=== PATIENT | female | born 1990 | race Caucasian/White ===

== ENCOUNTER 2023-09-25 11:24 | Emergency (ER) | payer OTHER, SELFPAY ==
[2023-09-25 11:28] VITALS: BP 118/86
[2023-09-25 12:04] VITALS: BMI 19.1
[2023-09-25 12:12] VITALS: BP 101/77
[2023-09-25 12:20] LABS: % Basophils 0.4 % (0-2); % Immature Granulocytes 0.3 % (0-0.5); % Lymphocytes 12.3 % (20.5-51.1); % Monocytes 4.5 % (1.7-9.3); % Neutrophils 82.5 % (42.2-75.2); Absolute Lymphocytes 0.8 10^3/uL (1.2-3.4); Absolute Monocytes 0.3 10^3/uL (0.1-0.6); Absolute Neutrophils 5.6 10^3/uL (1.4-6.5); Hematocrit 42.8 % (37.0-47.0); Mean Corpuscular Hgb 30.2 pg (27.0-31.0); Mean Corpuscular Volume 86.3 fL (81.0-99.0); Mean Platelet Volume 9.3 fL (7.4-10.4); Nucleated Red Blood Cells % 0 %; Platelet Count 228 10^3/uL (130-400); Red Blood Cell Count 4.96 10^6/uL (4.20-5.40); Red Cell Dist. Width 11.9 % (11.5-14.5); White Blood Cell Count 6.7 10^3/uL (4.8-10.8)
[2023-09-25 12:22] LABS: Urine Albumin Negative (Neg - Trace); Urine Bilirubin Negative (Negative); Urine Character Clear (Clear); Urine Color Yellow; Urine Glucose Negative (Negative); Urine Ketone Negative (Negative); Urine Leukocyte Negative (Negative); Urine Nitrite Negative (Negative); Urine Occult Blood Trace (Negative); Urine Urobilinogen Negative (Neg - 1+)
[2023-09-25 12:31] LABS: Urine Red Blood Cell 0-2 /HPF (0-2); Urine Squamous Cell 16-20 /LPF (Few)
[2023-09-25 12:32] LABS: Urine White Cell 0-2 /HPF (0-5)
--- NOTE | 2023-09-25 12:41 | ED.GENMED ---
History of Present Illness
General
Chief Complaint: Abdominal Symptoms
Source: patient
Exam Limitations: none
Time Seen by Provider: 09/25/23 11:46
Nursing documentation reviewed up to this point in time: agreed with
Travel History
Have you had any contact with someone who has COVID-19?: No
Do you have any symptoms of coronavirus? Fever > 100 degrees, chills, cough, shortness of breath, sore throat, loss of taste or smell, muscle aches, or headache?: No
History of Present Illness
History of Present Illness:
Patient is a 33-year-old female who presented to the ER for evaluation of abdominal pain. She reports she started with generalized abdominal discomfort last night after eating dinner but then pain persisted throughout the night and continued this
morning. She denies any nausea vomiting fever chills constipation urinary frequency urgency or dysuria. She did have some mild low back pain yesterday. She denied any injury but does exercise.
LMP one week ago
Past History
Past History
ED Past Medical History: Other (Low blood pressure)
ED Past Surgical History: Other (Eye surgery)
Review of Systems
Review of Systems
Allergies reviewed?: Yes
All Other Systems: ROS reviewed and negative except as documented in HPI and ROS
Constitutional: Reports no symptoms; Denies fever
Respiratory: Reports no symptoms
Cardiac: Reports no symptoms
ABD/GI: Reports abdominal pain; Denies nausea, vomiting or diarrhea
: Reports no symptoms
Musculoskeletal: Reports no symptoms
Skin: Reports no symptoms
Neurological: Reports no symptoms
Phy Exam
General Physical Exam
General Presentation: no apparent distress
General age: appears stated age
General Skin: warm and dry
General Habitus: normal
General Mental: alert
General Hydration: appears well hydrated
Cardiovascular Exam
Cardiovascular Exam: regular rate/rhythm, no murmur and normal peripheral pulses
Pulmonary Exam
Pulmonary Exam: lungs clear
Gastrointestinal Exam
Gastrointestinal Exam: normal bowel sounds, non tender and soft
Neurological Exam
Neurological Exam: alert and oriented x3
Musculoskeletal Exam
Musculoskeletal Exam: full ROM
Skin Exam
Skin Exam: normal color and warm/dry
Psychiatric Exam
Psychiatric Exam: normal mood/affect
Course
Orders/Labs/Results
Orders:
Orders
09/25/23 12:12
Test Result ONCE
09/25/23 12:13
Complete Blood Count/With Diff Urgent
Comprehensive Metabolic Panel Urgent
HCG, Serum Qualitative Screen Urgent
Lipase Urgent
UA Reflex to Culture [Urinalysis Reflex To Culture] Urgent
Date Specimen was Collected: 09/25/23
Time Specimen was Collected: 12:05
Urine Microscopic Reflex Cult Urgent
09/25/23 12:53
Iohexol [Omnipaque] See Protocol PO NOW STA
US Pelvis W Transvag Combined Urgent
Reason For Exam: lower abd pain
09/25/23 12:54
CT Abd/pel W Iv And Oral Contr Urgent
Comment:
Reason For Exam: abd pain
0.9% Sodium Chloride 1000 ml [Nss] 1,000 ml IV BOLUS
09/25/23 16:03
Ketorolac [Toradol] 15 mg IV NOW STA
Abnormal Lab Results
09/25/23
12:13
Absolute Lymphs (auto) 0.8 L 10^3/uL
(1.2-3.4)
Neutrophils % 82.5 H %
(42.2-75.2)
Lymphocytes % 12.3 L %
(20.5-51.1)
Sodium 134 L mmol/L
(135-145)
Ur Occult Blood Reflex Trace A
(Negative)
09/25/23 12:13
09/25/23 12:13
Vital Signs
Initial and Last Documented VS:
Initial Vital Signs
Temp Pulse Resp BP Pulse Ox
98.1 F 74 18 118/86 98
09/25/23 11:28 09/25/23 11:28 09/25/23 11:28 09/25/23 11:28 09/25/23 11:28
Last Documented Vital Signs
Temp Pulse Resp BP Pulse Ox
98.1 F 87 18 106/79 98
09/25/23 11:28 09/25/23 13:24 09/25/23 13:24 09/25/23 13:00 09/25/23 16:00
Coupon Clerk consulted with Physician
Coupon Clerk consulted with physician?: Yes
Name of Physician Consulted: natalie
MDM/Problems Addressed
Differential Diagnosis Includes:
Not limited to diverticulitis, constipation, biliary colic, ovarian torsion, ovarian cyst, UTI
MDM/Problems Addressed:
Patient is a 28yr old Female who presented with abdominal pain since last night. On exam patient is in no acute distress abdomen soft and nontender however she complains of vague pain not associated with fever or chills vomiting. No UTI symptoms.
Urinalysis negative. hCG negative. Labs unremarkable patient again has no abdominal tenderness. With vague pain ultrasound was performed as well as CAT scan. Patient with incidental ovarian cyst as well as periuterine varicosities likely
incidental findings. Patient was given IV Toradol for pain no clear cause for pain however no acute concerning findings during workup. Will DC with outpatient follow-up family doctor as well as GI/[employer]. Patient given copies of her reports.
*Radiology
Radiology exam reviewed: radiology read reviewed
*Critical Care Note
Total Time (30-74mins, 75-104mins- exclusive of procedures): Not Applicable
ED Attending Note
-
Portions of this chart may have been created with voice recognition software.� Occasional wrong word or��sound alike� substitutions may have occurred due to the inherent limitations of voice recognition software.
Discharge Plan
Departure
Patient Disposition: Home (Routine Discharge)
Date of Disposition: 09/25/23
Time of Disposition: 16:07
Patient with high blood pressure during this ER visit?: No
Condition: Fair
Covid-19: Not Applicable
Discharge Problem:
Abdominal pain
Instructions: Abdominal Pain
Prescriptions:
No Action
Tablet
1 tab PO DAILY
Referrals:
Francesca Singh CRNP [Family Provider] -
Yasmeen Orellana MD [Active] -
Activity Restrictions/Additional Instructions:
As discussed no acute findings were seen on CAT scan or ultrasound for the cause of your pain. Please follow-up however with family doctor in the next several days for further reevaluation of symptoms. Also follow-up with GI. Follow-up with your
soybean grower. There is an incidental ovarian cyst and prominent left periuterine varicosities.
Return to the ER if any worsening of symptoms. You may take Tylenol for pain.
Interventions
Interventions:
*Risk Screen - Suicide Last Done: 09/25/23 12:05
*General Assessment Last Done: 09/25/23 12:05
*Neglect/Abuse Screening Last Done: 09/25/23 12:05
ED- Fall Risk Assessment Last Done: 09/25/23 12:18
*ED COVID-19 Vaccine History Last Done: 09/25/23 12:05
UA-Apwdte-Uumdftmlnw Assessment Last Done: 09/25/23 12:18
[2023-09-25 12:43] LABS: HCG, Serum Qualitative Screen Negative
[2023-09-25 12:46] LABS: ALT (SGPT) 15 U/L (0-35); AST (SGOT) 20 U/L (14-36); Albumin 4.1 g/dl (3.5-5.0); Alkaline Phosphatase 67 U/L (38-126); Blood Urea Nitrogen 11 mg/dl (7-17); Calcium 8.6 mg/dl (8.4-10.2); Carbon Dioxide 25 mmol/L (22-30); Chloride 104 mmol/L (98-107); Estimated Creatinine Clearance 101 ml/min; Glucose 86 mg/dl (70-99); Lipase 54 U/L (23-300); Potassium 4.3 mmol/L (3.5-5.1); Sodium 134 mmol/L (135-145); Total Bilirubin 0.6 mg/dl (0.2-1.3); eGFR > 60.00
[2023-09-25 13:00] VITALS: BP 106/79
[2023-09-25] MEDS: OMNIPAQUE 50 ML PO (13:04)
[2023-09-25] MEDS: NSS 1000 IV (13:05)
[2023-09-25] MEDS: TORADOL 15 MG IV (16:06)
[2023-09-25 16:08] VITALS: BP 99/71
== END 2023-09-25 16:32 | disposition home or self-care (01) ==
LOC: EMR 11:24
PROVIDERS: Nurse Practitioner; EMERGENCY PHYSICIAN Emergency Medicine; FAMILY PHYSICIAN Nurse Practitioner
DX: R10.9 Unspecified abdominal pain (principal)
CPT/HCPCS: 99285; 96374; 96360; 74177; 76830; 76856; 80053; 81003; 81015; 83690; 84703; 85025; Q9967

== ENCOUNTER 2024-09-14 22:28 | Emergency (ER) | payer OTHER, SELFPAY ==
[2024-09-14 22:34] VITALS: BP 98/72
[2024-09-14 22:48] LABS: % Basophils 0.2 % (0-2); % Eosinophils 0.1 % (0-6); % Immature Granulocytes 0.4 % (0-0.5); % Lymphocytes 3.2 % (20.5-51.1); % Monocytes 2.5 % (1.7-9.3); % Neutrophils 93.6 % (42.2-75.2); Absolute Immature Granulocytes 0.1 10^3/uL (0-0.05); Absolute Lymphocytes 0.4 10^3/uL (1.2-3.4); Absolute Monocytes 0.3 10^3/uL (0.1-0.6); Absolute Neutrophils 12.5 10^3/uL (1.4-6.5); Hematocrit 44.5 % (37.0-47.0); Hemoglobin 16.3 g/dL (12.0-16.0); Mean Corp Hgb Conc. 36.6 g/dL (33.0-37.0); Mean Corpuscular Hgb 31.8 pg (27.0-31.0); Mean Corpuscular Volume 86.7 fL (81.0-99.0); Mean Platelet Volume 10.1 fL (7.4-10.4); Nucleated Red Blood Cells % 0 %; Platelet Count 250 10^3/uL (130-400); Red Blood Cell Count 5.13 10^6/uL (4.20-5.40); Red Cell Dist. Width 11.4 % (11.5-14.5); White Blood Cell Count 13.3 10^3/uL (4.8-10.8)
[2024-09-14 23:18] LABS: ALT (SGPT) 19 U/L (0-35); AST (SGOT) 22 U/L (14-36); Albumin 4.3 g/dl (3.5-5.0); Alkaline Phosphatase 54 U/L (38-126); Blood Urea Nitrogen 21 mg/dl (7-17); Calcium 9.4 mg/dl (8.4-10.2); Chloride 101 mmol/L (98-107); Glucose 115 mg/dl (70-99); Lipase 66 U/L (23-300); Sodium 134 mmol/L (135-145); Total Bilirubin 1.8 mg/dl (0.2-1.3); eGFR > 60.00
[2024-09-14 23:27] LABS: Carbon Dioxide 19 mmol/L (22-30); Total Protein 7.4 g/dl (6.3-8.2)
[2024-09-15 00:21] VITALS: BP 106/69
[2024-09-15] MEDS: NSS 1000 IV ×2 (00:23→01:54)
[2024-09-15 01:55] VITALS: BP 110/67
[2024-09-15 03:00] VITALS: BP 100/68
--- NOTE | 2024-09-15 03:19 | ED.GENMED ---
History of Present Illness
General
Chief Complaint: Abdominal Symptoms
Source: patient
Exam Limitations: none
Time Seen by Provider: 09/15/24 02:38
Nursing documentation reviewed up to this point in time: agreed with
History of Present Illness
History of Present Illness:
Pleasant 33-year-old female presents with nausea vomiting and diarrhea that been present since 3 PM. She states that her children have had the stomach bug and had similar symptoms at home. She states that she developed symptoms shortly after her
children's and symptoms improved. Upon arrival she got a dose of Zofran and fluids and states that she feels better. Denies chest pain or shortness of breath. Patient works as a therapist via telemedicine. Patient received 2 bags of fluids here
and states that she wishes to be discharged. She has no complaints
Past History
Past History
ED Past Medical History: Other (Low blood pressure)
ED Past Surgical History: Other (Eye surgery)
Review of Systems
Review of Systems
Allergies reviewed?: Yes
All Other Systems: ROS reviewed and negative except as documented in HPI and ROS
Constitutional: Reports no symptoms
EENT: Reports no symptoms
Respiratory: Reports no symptoms
Cardiac: Reports no symptoms
ABD/GI: Reports nausea, vomiting and diarrhea
: Reports no symptoms
Musculoskeletal: Reports no symptoms
Skin: Reports no symptoms
Neurological: Reports no symptoms
Endocrine: Reports no symptoms
Hematologic/Lymphatic: Reports no symptoms
Psychiatric: Reports no symptoms
Phy Exam
General Physical Exam
General Presentation: well appearing and no apparent distress
General Skin: warm and dry
General Habitus: normal
General Mental: alert
General Hydration: appears well hydrated
ENT Exam
ENT Exam: EOMI, pharynx normal, neck supple and normocephalic
Eye Exam
Eye Exam: PERRL, cornea clear and conjunctiva normal
Cardiovascular Exam
Cardiovascular Exam: regular rate/rhythm, no edema, no murmur and normal peripheral pulses
Pulmonary Exam
Pulmonary Exam: lungs clear, no respiratory distress, no rales, no crackles, no rhonchi, no stridor, no wheezing and no cough
Gastrointestinal Exam
Gastrointestinal Exam: normal bowel sounds, non tender, soft, no organomegaly, no pulsatile mass and non distended
Neurological Exam
Neurological Exam: alert, oriented x3, no motor deficits and speech normal
Musculoskeletal Exam
Musculoskeletal Exam: full ROM and no edema
Skin Exam
Skin Exam: normal color, warm/dry, no rash and no petechia
Psychiatric Exam
Psychiatric Exam: normal mood/affect
Course
Orders/Labs/Results
Orders:
Orders
09/14/24 22:42
Complete Blood Count/With Diff Urgent
Comprehensive Metabolic Panel Urgent
Lipase Urgent
09/15/24 00:22
0.9% Sodium Chloride 1000 ml [Nss] 1,000 ml IV BOLUS
09/15/24 01:54
0.9% Sodium Chloride 1000 ml [Nss] 1,000 ml IV BOLUS
09/15/24 02:45
COVID-19 Antigen Urgent
Source: Nasal Swab
Influenza A+B Rapid Molecular Urgent
NASIMA Source: Nasal Swab
Specimen Description:
Abnormal Lab Results
09/14/24
22:42
WBC 13.3 H 10^3/uL
(4.8-10.8)
Hgb 16.3 H g/dL
(12.0-16.0)
MCH 31.8 H pg
(27.0-31.0)
RDW 11.4 L %
(11.5-14.5)
Abs Immat Gran (auto) 0.1 H 10^3/uL
(0-0.05)
Absolute Neuts (auto) 12.5 H 10^3/uL
(1.4-6.5)
Absolute Lymphs (auto) 0.4 L 10^3/uL
(1.2-3.4)
Neutrophils % 93.6 H %
(42.2-75.2)
Lymphocytes % 3.2 L %
(20.5-51.1)
Sodium 134 L mmol/L
(135-145)
Carbon Dioxide 19 L mmol/L
(22-30)
BUN 21 H mg/dl
(7-17)
Glucose 115 H mg/dl
(70-99)
Total Bilirubin 1.8 H mg/dl
(0.2-1.3)
09/14/24 22:42
09/14/24 22:42
Vital Signs
Initial and Last Documented VS:
Initial Vital Signs
Temp Pulse Resp BP Pulse Ox
97.8 F 116 19 98/72 99
09/14/24 22:34 09/14/24 22:34 09/14/24 22:34 09/14/24 22:34 09/14/24 22:34
Last Documented Vital Signs
Temp Pulse Resp BP Pulse Ox
99.5 F 91 16 100/68 98
09/15/24 00:21 09/15/24 01:55 09/15/24 00:21 09/15/24 03:00 09/15/24 03:00
*Critical Care Note
Total Time (30-74mins, 75-104mins- exclusive of procedures): Not Applicable
ED Attending Note
-
Portions of this chart may have been created with voice recognition software.� Occasional wrong word or��sound alike� substitutions may have occurred due to the inherent limitations of voice recognition software.
Discharge Plan
Departure
Patient Disposition: Home (Routine Discharge)
Date of Disposition: 09/15/24
Time of Disposition: 03:21
Patient with high blood pressure during this ER visit?: No
Condition: Good
Discharge Problem:
Gastroenteritis
Instructions: Dehydration, Adult (DC), Mcloud Diet, Nausea and Vomiting, Adult (DC)
Prescriptions:
New
ondansetron HCl 4 mg tablet
4 mg PO TID 4 Days Qty: 12 0RF
No Action
spironolactone 100 mg Tablet
100 mg PO DAILY
methylphenidate HCl [Concerta] 27 mg Tablet Extended Release 24hr
27 mg PO DAILY
Lo Loestrin Fe 1 mg-10 mcg (24)/10 mcg (2) Tablet
1 tab PO DAILY
Referrals:
[facility] [Outside]
[facility] [Outside]
UNKNOWN - PT DOES,NOT KNOW [Family Provider] -
Activity Restrictions/Additional Instructions:
It was a pleasure meeting you and taking part in your care. We hope for your continued healing and wellness.
Please read discharge instructions in their entirety. However, they are for general education and may not describe your exact diagnosis at discharge. Information on your ER visit and medical conditions were discussed with you along with appropriate
follow up information...
If indicated, please take your medications as instructed and indicated on discharge paperwork.
Please schedule a follow up appointment as directed. Call to schedule an appointment
Please return to the emergency department with ANY change in, persisting, or worsening of symptoms. If any of your symptoms do not improve, or persist, or become more severe within 6-12 hours, please return to the emergency department for further
care.
Please return to the emergency department if you develop a headache, neck pain/stiffness, fever greater than 100.4F, chest pain, shortness of breath, persistent nausea, vomiting, slurred speech, difficulty walking, numbness/tingling, weakness, signs
of infection or any other symptoms that are worrisome to you.
If you have any questions or concerns please do not hesitate to call the Hospital at or E-mail me directly at [email or web address]
Interventions
Interventions:
*Risk Screen - Suicide Last Done: 09/14/24 22:34
*General Assessment Last Done: 09/14/24 22:34
*Neglect/Abuse Screening Last Done: 09/14/24 22:34
ED- Fall Risk Assessment Last Done: 09/15/24 00:29
*ED COVID-19 Vaccine History Last Done: 09/15/24 00:12
CP-Bnzxea-Wrcxovvmzq Assessment Last Done: 09/15/24 00:29
Discharge Date and Time
Print Language: LEBANESE
[2024-09-15 03:24] LABS: COVID-19 Antigen Negative (Negative)
[2024-09-15 03:47] VITALS: BP 88/63
== END 2024-09-15 03:51 | disposition home or self-care (01) ==
LOC: EMR 22:28
PROVIDERS: EMERGENCY PHYSICIAN Student in an Organized Health Care Education/Training Program
DX: K52.9 Noninfective gastroenteritis and colitis, unspecified (principal); Z11.52 Encounter for screening for COVID-19
CPT/HCPCS: 99284; 96360; 96361; 80053; 83690; 85025; 87502; 87811